=== PATIENT | male | born 1995 | race Caucasian/White ===

== ENCOUNTER 2019-01-27 12:53 | Inpatient (IN) | payer OTHER ==
[2019-01-27 13:03] VITALS: BMI 28.5
--- NOTE | 2019-01-27 13:52 | PDOC ---
History of Present Illness - General Chief Complaint: Pain, Acute Stated Complaint: right testicular pain Time Seen by Provider: 01/27/19 13:06 History Source: Patient - History of Present Illness Initial Comments: 01/27/19 14:22 22-year-old male complaining of right testicular swelling and pain for the last 4 months. Patient was seen at [facility] emergency Department on 01/08/18. Patient brought paperwork which shows a right testicular mass on ultrasound. Patient reports slight pain on urination. Denies penile discharge, abdominal pain. Denies fevers/chills. Patient denies outpatient follow-up. Past History - Past Medical History Allergies/Adverse Reactions: Allergies Allergy/AdvReac Type Severity Reaction Status Date / Time No Known Allergies Allergy Verified 01/27/19 13:45 Home Medications: Ambulatory Orders NK [No Known Home Medication] 01/27/19 - Suicide/Smoking/Psychosocial Hx Smoking History: Never smoked Have you smoked in the past 12 months: No Information on smoking cessation initiated: No Hx Alcohol Use: No Drug/Substance Use Hx: No Review of Systems - Review of Systems Able to Perform ROS?: Yes Is the patient limited Thai proficient: No Constitutional: No: Symptoms Reported, See HPI, Chills, Diaphoresis, Fever, Loss of Appetite, Malaise, Night Sweats, Weakness, Weight Stable, Unintentional Wgt. Loss, Unexplained wgt Loss, Other : Yes: Pain, Testicular Mass (right), Testicular Swelling *Physical Exam - Vital Signs Last Vital Signs Temp Pulse Resp BP Pulse Ox 98.9 F 79 20 144/94 100 01/27/19 13:00 01/27/19 13:00 01/27/19 13:00 01/27/19 13:00 01/27/19 13:00 - Physical Exam General Appearance: Yes: Appropriately Dressed Gastrointestinal/Abdominal: positive: Normal Bowel Sounds, Soft. negative: Tender Male Genitalia: positive: testicular tenderness, testicular mass (right testicle 2x size of left) Extremity: positive: Normal Capillary Refill, Normal Inspection, Normal Range of Motion Integumentary: positive: Normal Color, Dry, Warm Neurologic: positive: Fully Oriented, Alert, Normal Mood/Affect Moderate Sedation - Procedure Monitoring Vital Signs: Procedure Monitoring Vital Signs Temperature 98.9 F 01/27/19 13:00 Pulse Rate 79 01/27/19 13:00 Respiratory Rate 20 03/07/19 13:00 Blood Pressure 144/94 01/27/19 13:00 O2 Sat by Pulse Oximetry (%) 100 01/27/19 13:00 ED Treatment Course - LABORATORY CBC & Chemistry Diagram: 01/30/19 08:40 01/30/19 08:40 - RADIOLOGY Radiology Studies Ordered: Category Date Time Status SCROTUM AND CONTENTS US [US] Stat Ultrasound 01/27/19 13:42 Ordered Progress Note - Progress Note Progress Note: A: testicular mass ; right testicular swelling and pain P: labs Scrotal US: 2 right testicular mass. urology malignancy work up and admission patient to be admitted for further managemenr of care. Medical Decision Making - Medical Decision Making 01/27/19 14:11 patient without insurance and appropriate outpatient follow i spoke to social work [place]. will consult. 01/27/19 15:35 patient case discussed with dr. tomlin (urology). recommends admission for malignancy work up and admission. 01/27/19 16:45 patient signed out to Dr. montanez. *DC/Admit/Observation/Transfer Diagnosis at time of Disposition: Testicular mass, Testicular pain, right - Discharge Dispostion Decision to Admit order: Yes - Referrals - Patient Instructions - Post Discharge Activity
[2019-01-27 14:30] LABS: BASO % 0.4 % (0-2.0); EOS % 0.7 % (0-4.5); HEMATOCRIT 45.7 % (35.4-49); HEMOGLOBIN 16.1 GM/dL (11.7-16.9); LYMPH % 17.8 % (8-40); MCH 30.4 pg (25.7-33.7); MCHC 35.2 g/dl (32.0-35.9); MEAN CELL VOLUME 86.3 fl (80-96); MEAN PLT VOLUME 9.8 fl (7.5-11.1); MONO % 5.1 % (3.8-10.2); PLATELET COUNT 184 K/MM3 (134-434); RBC 5.29 M/mm3 (4.00-5.60); RDW 13.4 % (11.9-15.9); WHITE BLOOD COUNT 9.7 K/mm3 (4.0-10.0)
[2019-01-27 14:42] LABS: URINE APPEARANCE CLEAR; URINE BILIRUBIN NEGATIVE (<2.0 mg/dL); URINE COLOR COLORLESS; URINE GLUCOSE (UA) NEGATIVE (NEGATIVE); URINE KETONE NEGATIVE (NEGATIVE); URINE LEUK ESTERASE NEGATIVE (NEGATIVE); URINE NITRITE NEGATIVE (NEGATIVE); URINE PROTEIN NEGATIVE (NEGATIVE); URINE UROBILINOGEN NEGATIVE mg/dL (0.2-1.0)
[2019-01-27 14:59] LABS: ALBUMIN 4.5 g/dl (3.4-5.0); ALK PHOS 122 U/L (45-117); ANION GAP 7 MMOL/L (8-16); BILIRUBIN,TOTAL 0.6 mg/dL (0.2-1); BLOOD UREA NITROGEN 10 mg/dL (7-18); CALCIUM 9.2 mg/dL (8.5-10.1); CHLORIDE 106 mmol/L (98-107); CO2 26 mmol/L (21-32); GLUCOSE,RANDOM 93 mg/dL (74-106); POTASSIUM 4.4 mmol/L (3.5-5.1); SGOT/AST 33 U/L (15-37); SGPT/ALT 54 U/L (13-61); SODIUM 138 mmol/L (136-145); TOT PROT 7.8 g/dl (6.4-8.2)
--- NOTE | 2019-01-27 16:52 | HP ---
CHIEF COMPLAINT: Right testicular mass PCP: none HISTORY OF PRESENT ILLNESS: 22-year-old male complaining of right testicular swelling and pain for the last 4 months along with 5 found weight loss. Patient was seen at [facility] x2 in december. Right testicular workup was performed in outpatient clinic. Scrotal US here positive for two right testicular masses. UA was normal. ER course was notable for: (1) scrotal u/s (2) (3) Recent Travel: no PAST MEDICAL HISTORY: no PAST SURGICAL HISTORY: no Social History: Smoking: no Alcohol: no Drugs: no Family History: no Allergies No Known Allergies Allergy (Verified 01/27/19 13:45) HOME MEDICATIONS: Home Medications Medication Instructions Recorded NK [No Known Home Medication] 01/27/19 REVIEW OF SYSTEMS CONSTITUTIONAL: Absent: fever, chills, diaphoresis, generalized weakness, malaise, loss of appetite, weight change present-weight change HEENT: Absent: rhinorrhea, nasal congestion, throat pain, throat swelling, difficulty swallowing, mouth swelling, ear pain, eye pain, visual changes CARDIOVASCULAR: Absent: chest pain, syncope, palpitations, irregular heart rate, lightheadedness , peripheral edema RESPIRATORY: Absent: cough, shortness of breath, dyspnea with exertion, orthopnea, wheezing, stridor, hemoptysis GASTROINTESTINAL: Absent: abdominal pain, abdominal distension, nausea, vomiting, diarrhea, constipation, melena, hematochezia GENITOURINARY: Absent: dysuria, frequency, urgency, hesitancy, hematuria, flank pain, present- genital pain MUSCULOSKELETAL: Absent: myalgia, arthralgia, joint swelling, back pain, neck pain SKIN: Absent: rash, itching, pallor HEMATOLOGIC/IMMUNOLOGIC: Absent: easy bleeding, easy bruising, lymphadenopathy, frequent infections ENDOCRINE: Absent: unexplained weight gain, unexplained weight loss, heat intolerance, cold intolerance NEUROLOGIC: Absent: headache, focal weakness or paresthesias, dizziness, unsteady gait, seizure, mental status changes, bladder or bowel incontinence PSYCHIATRIC: Absent: anxiety, depression, suicidal or homicidal ideation, hallucinations. PHYSICAL EXAMINATION Vital Signs - 24 hr 01/27/19 13:00 Temperature 98.9 F Pulse Rate 79 Respiratory 20 Rate Blood Pressure 144/94 O2 Sat by Pulse 100 Oximetry (%) GENERAL: Awake, alert, and fully oriented, in no acute distress. HEAD: Normal with no signs of trauma. EYES: Pupils equal, round and reactive to light, extraocular movements intact, sclera anicteric, conjunctiva clear. No lid lag. EARS, NOSE, THROAT: Ears normal, nares patent, oropharynx clear without exudates. Moist mucous membranes. NECK: Normal range of motion, supple without lymphadenopathy, JVD, or masses. LUNGS: Breath sounds equal, clear to auscultation bilaterally. No wheezes, and no crackles. No accessory muscle use. HEART: Regular rate and rhythm, normal S1 and S2 without murmur, rub or gallop. ABDOMEN: Soft, nontender, not distended, normoactive bowel sounds, no guarding, no rebound, no masses. No hepatomegaly or splenomegaly. MUSCULOSKELETAL: Normal range of motion at all joints. No bony deformities or tenderness. No CVA tenderness. UPPER EXTREMITIES: 2+ pulses, warm, well-perfused. No cyanosis. No clubbing. No peripheral edema. LOWER EXTREMITIES: 2+ pulses, warm, well-perfused. No calf tenderness. No peripheral edema. NEUROLOGICAL: Cranial nerves II-XII intact. Normal speech. Normal gait. PSYCHIATRIC: Cooperative. Good eye contact. Appropriate mood and affect. SKIN: Warm, dry, normal turgor, no rashes or lesions noted, normal capillary refill. GENITAL- -right testicle enlarged, hard mass Laboratory Results - last 24 hr 01/27/19 01/27/19 01/27/19 14:15 14:15 14:27 WBC 9.7 RBC 5.29 Hgb 16.1 Hct 45.7 MCV 86.3 MCH 30.4 MCHC 35.2 RDW 13.4 Plt Count 184 MPV 9.8 Absolute Neuts (auto) 7.4 Neutrophils % 76.0 Lymphocytes % 17.8 Monocytes % 5.1 Eosinophils % 0.7 Basophils % 0.4 Nucleated RBC % 0 Sodium 138 Potassium 4.4 Chloride 106 Carbon Dioxide 26 Anion Gap 7 L BUN 10 Creatinine 1.0 Creat Clearance w eGFR > 60 Random Glucose 93 Calcium 9.2 Total Bilirubin 0.6 AST 33 ALT 54 Alkaline Phosphatase 122 H Total Protein 7.8 Albumin 4.5 Urine Color Colorless Urine Appearance Clear Urine pH 6.0 Ur Specific [place] 1.004 L Urine Protein Negative Urine Glucose (UA) Negative Urine Ketones Negative Urine Blood Negative Urine Nitrite Negative Urine Bilirubin Negative Urine Urobilinogen Negative Ur Leukocyte Esterase Negative Scrotal US: 2 right testicular masses ASSESSMENT/PLAN: #22yo man with 2x right heterogenous testicular masses -likely malignancy. UA is clean. Should r/o chlamydia/GC orchitis. -admit to med/surg -ekg -PT/PTT -type and screen -urology consult -AFP -B- HCG -abd/pelvis CT - to evaluate for mets -chest CT - to evaluate for mets -LDH -morphine IV prn for pain -zofran IV prn if nausea or vomiting -NPO for right testicle surgery -SCDs for dvt ppx Visit type - Emergency Visit Emergency Visit: Yes ED Registration Date: 01/27/19 Care time: The patient presented to the Emergency Department on the above date and was hospitalized for further evaluation of their emergent condition. - New Patient This patient is new to me today: Yes Date on this admission: 01/27/19 - Critical Care Critical Care patient: No
[2019-01-27] MEDS ORDERED: MORPHINE SULFATE 2 MG/ML VIAL IVPUSH PRN (18:47)
[2019-01-27] MEDS ORDERED: ONDANSETRON 4 MG/2 ML VIAL IVPUSH PRN ×2 (18:54→23:29)
--- NOTE | 2019-01-27 19:08 | CON.GU ---
Consult - History of Present Illness History of Present Illness: 22 yo male with several month h/o enlarging rt testicle mass. Seen at [facility] in early Dec with elevated Beta HCG and scrotal sono c/w rt testicle malignancy but never f/u as outpt, now presenting with worsening pain and enlarging mass - Alcohol/Substance Use Hx Alcohol Use: No - Smoking History Smoking history: Never smoked Have you smoked in the past 12 months: No Home Medications - Allergies Allergies/Adverse Reactions: Allergies Allergy/AdvReac Type Severity Reaction Status Date / Time No Known Allergies Allergy Verified 01/27/19 13:45 - Home Medications Home Medications: Ambulatory Orders NK [No Known Home Medication] 01/27/19 Review of Systems - Review of Systems Genitourinary: reports: Testicular Pain Physical Exam- Vital Signs: Vital Signs Temperature 98.3 F 01/27/19 18:25 Pulse Rate 66 01/27/19 18:25 Respiratory Rate 18 01/27/19 18:25 Blood Pressure 122/71 01/27/19 18:25 O2 Sat by Pulse Oximetry (%) 98 01/27/19 18:25 Testicles: Yes: Mass (solid rt testis mass c/w malignancy) Labs: CBC, BMP 01/27/19 14:15 01/27/19 14:15 Imaging - Results Ultrasound: Report Reviewed Assessment/Plan Rt testis mass I'm concerned that since pt has no insurance he will again be lost to follow up. Recommend admission for metastatic w/u, staging and immediate radical right orchiectomy
[2019-01-27] MEDS ORDERED: ceFAZolin SODIUM 1 GM VIAL ONE (19:12)
[2019-01-27] MEDS ORDERED: ONDANSETRON 4 MG/2 ML VIAL ONE (19:12)
[2019-01-27] MEDS ORDERED: DEXAMETHASONE SOD PHOSPHATE 4 MG/1 ML VIAL ONE (19:12)
[2019-01-27] MEDS ORDERED: ceFAZolin SODIUM 1 GM VIAL IVPB ONE (19:12)
[2019-01-27] MEDS ORDERED: PROPOFOL 20 ML ONE (19:15)
[2019-01-27] MEDS ORDERED: GLYCOPYRROLATE 0.2 MG/1 ML VIAL ONE (19:32)
[2019-01-27 19:34] LABS: INR 1.13 (0.83-1.09); PROTHROMBIN TIME (PATIENT) 13.3 SEC (9.7-13.0)
[2019-01-27 19:36] LABS: ACTIVATED PTT 30.5 SECONDS (25.2-36.5)
[2019-01-27] MEDS ORDERED: BUPIVACAINE HCL/PF 0.25% (2.5MG/ML) 10 ML VIAL IJ ONE (19:44)
--- NOTE | 2019-01-27 20:06 | OP ---
Operative Note - Note: Operative Date: 01/27/19 Pre-Operative Diagnosis: rt testis mass Operation: rt rad orchiectomy Post-Operative Diagnosis: Same as Pre-op Surgeon: Jeferson Mccall Anesthesia: General Specimens Removed: rt testis w cord Operative Report Dictated: Yes
[2019-01-27] MEDS ORDERED: HEPARIN NA (PORCINE) 5,000 UNITS/ML 1ML VIAL SQ SCH (22:00)
--- NOTE | 2019-01-27 23:31 | OP ---
DATE OF OPERATION: 01/27/2019 PREOPERATIVE DIAGNOSIS: Right testicular mass. POSTOPERATIVE DIAGNOSIS: Right testicular mass. PROCEDURE: Right radical orchiectomy. SURGEON: Jeferson Wells MD INDICATIONS: The patient is a 23-year-old male with a 4-month history of right testicle mass who presents to [facility] with the same. He was admitted emergently for metastatic workup and right radical orchiectomy. This was discussed in detail with the patient. He understood the risks of bleeding, infection, potential that this may not be a tumor, potential for affecting sexual function and fertility, and potential injury to adjacent structures. Informed consent was obtained. DESCRIPTION OF PROCEDURE: Patient was taken to the OR and placed supine on the table. Cardiac monitors were general anesthesia were established. He was prepped and draped in the standard supine position. The right groin was prepped and draped. An inguinal incision was created with a number 15-blade down through Bartolo fascia until the external oblique aponeurosis was identified. This was then incised. Spermatic cord was delivered and encircled with a Lotus and clamped. The testicle was then delivered into the wound with the spermatic cord clamped to prevent any migration of tumor cells. The testicle was freed from its scrotal tissue by cautery and then the spermatic cord was dissected free to the internal ring. It was clamped and suture ligated with 0 Vicryl. The specimen with the right testicle, tumor, and spermatic cord was then sent to Pathology for analysis. Attention was turned to wound closure. The external oblique aponeurosis was reapproximated with a running 2-0 Vicryl suture. Bartolo layer was reapproximated with interrupted chromic and the skin was closed with 4-0 Monocryl. Dry sterile dressings were placed. Patient was awoken from anesthesia and transferred to the recovery room in stable condition. There were no complications. Estimated blood loss was minimal. JEFERSON WELLS M.D. [id number]
[2019-01-28] MEDS: MORPHINE SULFATE 2 MG/ML VIAL IVPUSH PRN ×4 (00:08→22:43)
[2019-01-28] MEDS: SODIUM CHLORIDE 1,000 ML IV SCH ×2 (00:10→14:07)
--- NOTE | 2019-01-28 08:13 | PN ---
Progress Note (short form) - Note Progress Note: Anesthesia post op note POD#1, S/p right orchiectomy under GA. Pat seen and examined. VSS. No apparent post anesthesia complications. signed off.
[2019-01-28 09:23] LABS: HEMATOCRIT 42.4 % (35.4-49); HEMOGLOBIN 14.6 GM/dL (11.7-16.9); MCH 30.1 pg (25.7-33.7); MCHC 34.5 g/dl (32.0-35.9); MEAN CELL VOLUME 87.3 fl (80-96); MEAN PLT VOLUME 9.7 fl (7.5-11.1); PLATELET COUNT 179 K/MM3 (134-434); RBC 4.86 M/mm3 (4.00-5.60); RDW 13.4 % (11.9-15.9); WHITE BLOOD COUNT 12.6 K/mm3 (4.0-10.0)
[2019-01-28 09:51] LABS: ANION GAP 8 MMOL/L (8-16); BLOOD UREA NITROGEN 12 mg/dL (7-18); CALCIUM 8.5 mg/dL (8.5-10.1); CHLORIDE 105 mmol/L (98-107); CO2 24 mmol/L (21-32); GLUCOSE,RANDOM 93 mg/dL (74-106); POTASSIUM 3.8 mmol/L (3.5-5.1); SODIUM 138 mmol/L (136-145)
--- NOTE | 2019-01-28 11:01 | CONSULT ---
Consult Consult Specialty:: Oncology Referred by:: Dr. Mccall Reason for Consultation:: Testicular mass - History of Present Illness Chief Complaint: Enlarging painful right testicular mass since September 2018. Seen at [facility] with sono demonstating mass and otherwise without intervention . Presented here with increasing testicular pain and underwent right radical orchiectomy . 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 type ) Review of Systems - Review of Systems Constitutional: reports: Unintentional Wgt. Loss (several lb weight loss over past several months) Respiratory: reports: Hemoptysis Genitourinary: reports: Testicular Mass, Testicular Pain, Testicular Swelling Physical Exam Vital Signs: Vital Signs Temperature 98.3 F 01/28/19 08:38 Pulse Rate 83 01/28/19 08:38 Respiratory Rate 18 01/28/19 08:38 Blood Pressure 120/57 L 01/28/19 08:38 O2 Sat by Pulse Oximetry (%) 98 01/28/19 02:00 Constitutional: Yes: Moderate Distress Eyes: No: Ptosis, Sclera Icterus HENT: No: Epistaxis, Thrush Neck: Yes: Supple, Trachea Midline. No: Decreased ROM, Lymphadenopathy, Tenderness, Thyromegaly Cardiovascular: Yes: Regular Rate and Rhythm Respiratory: Yes: Diminished Gastrointestinal: Yes: Normal Bowel Sounds, Soft. No: Hepatomegaly, Splenomegaly Renal/: Yes: Other (uncircumcised ,scrotal support . s/p right radical orchiectomy). No: Anuria, CVA Tenderness - Left Breast(s): No: Gynecomastia Musculoskeletal: No: Back Pain Extremities: No: Calf Tenderness Edema: No Wound/Incision: Yes: Clean/Dry Neurological: Yes: WNL ...Motor Strength: WNL Psychiatric: Yes: WNL Labs: CBC, BMP 01/28/19 09:05 01/28/19 09:05 Imaging - Results Cat Scan: Report Reviewed, Image Reviewed Problem List - Problems (1) Testicular mass Assessment/Plan: Enlarging , painful right testicular mass since September 2018. Underwent right radical orchiectomy. Path pending AFP pending -- Beta HCG elevated --27,234 LDH -minimal elevation CT pleural and lung nodules; no retroperitoneal lymphadenopathy Plan: Await path Somewhat unusual to have lung mets without retroperitoneal khushi disease for germ cell tumors ( ? choriocarcinoma) Will obtain GGTP Code(s): N50.9 - DISORDER OF MALE GENITAL ORGANS, UNSPECIFIED
--- NOTE | 2019-01-28 17:03 | PN ---
Physical Exam: SUBJECTIVE: Patient seen and examined OBJECTIVE: start lovenox prophylaxis POD#1, S/p right orchiectomy under GA Vital Signs Period Temp Pulse Resp BP Sys/Stanton Pulse Ox Last 24 Hr 98.2 F-99.5 F 66-87 15-19 120-160/57-81 98-100 GENERAL: The patient is awake, alert, and fully oriented, in no acute distress. greenlandic speaking only. HEAD: Normal with no signs of trauma. EYES: PERRL, extraocular movements intact, sclera anicteric, conjunctiva clear. No ptosis. ENT: Ears normal, nares patent, oropharynx clear without exudates, moist mucous membranes. NECK: Trachea midline, full range of motion, supple. LUNGS: Breath sounds equal, clear to auscultation bilaterally, no wheezes HEART: Regular rate and rhythm, S1, S2 without murmur, rub or gallop. ABDOMEN: Soft, nontender, nondistended, normoactive bowel sounds, no guarding, no rebound, no hepatosplenomegaly, no masses. EXTREMITIES: no edema. NEUROLOGICAL: Normal speech, gait not observed. PSYCH: Normal mood, normal affect. Laboratory Results - last 24 hr 01/27/19 01/27/19 01/27/19 09:05 18:22 18:22 WBC RBC Hgb Hct MCV MCH MCHC RDW Plt Count MPV PT with INR 13.30 H INR 1.13 H PTT (Actin FS) 30.5 Sodium Potassium Chloride Carbon Dioxide Anion Gap BUN Creatinine Creat Clearance w eGFR POC Glucometer Random Glucose Calcium LD Total 294 H Beta HCG, Quant 87029.1 Blood Type O POSITIVE Antibody Screen 01/27/19 01/28/19 01/28/19 18:22 00:15 06:36 WBC RBC Hgb Hct MCV MCH MCHC RDW Plt Count MPV PT with INR INR PTT (Actin FS) Sodium Potassium Chloride Carbon Dioxide Anion Gap BUN Creatinine Creat Clearance w eGFR POC Glucometer 134 104 Random Glucose Calcium LD Total Beta HCG, Quant Blood Type O POSITIVE Antibody Screen Negative 01/28/19 01/28/19 09:05 09:05 WBC 12.6 H RBC 4.86 Hgb 14.6 Hct 42.4 MCV 87.3 MCH 30.1 MCHC 34.5 RDW 13.4 Plt Count 179 MPV 9.7 PT with INR INR PTT (Actin FS) Sodium 138 Potassium 3.8 Chloride 105 Carbon Dioxide 24 Anion Gap 8 BUN 12 Creatinine 1.0 Creat Clearance w eGFR > 60 POC Glucometer Random Glucose 93 Calcium 8.5 LD Total Beta HCG, Quant Blood Type Antibody Screen Active Medications Generic Name Dose Route Start Last Admin Trade Name Freq PRN Reason Stop Dose Admin Enoxaparin Sodium 40 mg 01/28/19 21:00 Lovenox - SQ DAILY MARIJA Sodium Chloride 1,000 mls @ 75 mls/hr 01/27/19 23:30 01/28/19 14:07 Normal Saline - IV 75 mls/hr ASDIR MARIJA Administration Morphine Sulfate 2 mg 01/27/19 23:29 01/28/19 11:36 Morphine Sulfate IVPUSH 2 mg Q4H PRN Administration PAIN LEVEL 6-10 Ondansetron HCl 4 mg 01/27/19 23:29 Zofran Injection IVPUSH Q4H PRN NAUSEA AND/OR VOMITING ASSESSMENT/PLAN: Patient is a 22 year old male with no significant past medical history other than a right testicular mass, admitted for worsening pain and of this right testicle. for the last 4 months along with 5 found weight loss. Scrotal US here positive for two right testicular masses. UA was normal. Imaging: Scrotal U/S: positive for two right testicular masses. Chest CT: pulmonary nodules : POD#1, S/p right orchiectomy under GA Pain management Chest ct consistent with possible mets Urology and hematology following patient aware of results Incentive spriometer bowel regimen monitor labs, vitals tumor markers pending fen tolerating PO monitor electrolytes reg diet prophy lovenox 40mg daily physical therapy Visit type - Emergency Visit Emergency Visit: Yes ED Registration Date: 01/27/19 Care time: The patient presented to the Emergency Department on the above date and was hospitalized for further evaluation of their emergent condition. - New Patient This patient is new to me today: No - Critical Care Critical Care patient: No - Discharge Referral Referred to [facility] Med P.C.: No
[2019-01-28] MEDS: ENOXAPARIN NA (PORCINE) 40 MG/0.4 ML DISP.SYRIN SQ SCH (22:43)
[2019-01-29] MEDS: SODIUM CHLORIDE 1,000 ML IV SCH (04:30)
[2019-01-29] MEDS: ENOXAPARIN NA (PORCINE) 40 MG/0.4 ML DISP.SYRIN SQ SCH ×2 (09:35→10:50)
--- NOTE | 2019-01-29 10:19 | PN ---
Progress Note (short form) - Note Progress Note: afebrile wound clean and dry elevated AFP, BHCG and LDH Mets on CT chest but not retroperitoneum await path
[2019-01-29 12:18] LABS: BASO % 0.4 % (0-2.0); EOS % 1.4 % (0-4.5); HEMATOCRIT 43.8 % (35.4-49); HEMOGLOBIN 15.4 GM/dL (11.7-16.9); MCH 30.9 pg (25.7-33.7); MEAN CELL VOLUME 88.2 fl (80-96); MEAN PLT VOLUME 9.9 fl (7.5-11.1); MONO % 8.7 % (3.8-10.2); NEUT % 65.5 % (42.8-82.8); PLATELET COUNT 165 K/MM3 (134-434); RBC 4.97 M/mm3 (4.00-5.60); RDW 13.5 % (11.9-15.9); WHITE BLOOD COUNT 8.8 K/mm3 (4.0-10.0)
[2019-01-29] MEDS: MORPHINE SULFATE 2 MG/ML VIAL IVPUSH PRN (12:40)
[2019-01-29 12:58] LABS: ALBUMIN 4.2 g/dl (3.4-5.0); ALK PHOS 112 U/L (45-117); ANION GAP 7 MMOL/L (8-16); BILIRUBIN,TOTAL 0.6 mg/dL (0.2-1); BLOOD UREA NITROGEN 11 mg/dL (7-18); CALCIUM 8.7 mg/dL (8.5-10.1); CHLORIDE 105 mmol/L (98-107); CO2 26 mmol/L (21-32); GLUCOSE,RANDOM 80 mg/dL (74-106); POTASSIUM 4.1 mmol/L (3.5-5.1); SGOT/AST 17 U/L (15-37); SGPT/ALT 35 U/L (13-61); SODIUM 138 mmol/L (136-145); TOT PROT 7.6 g/dl (6.4-8.2)
[2019-01-29] MEDS ORDERED: MORPHINE SULFATE 2 MG/ML VIAL IVPUSH PRN (13:32)
--- NOTE | 2019-01-29 13:34 | PN ---
Physical Exam: SUBJECTIVE: Patient seen and examined OBJECTIVE: Vital Signs Period Temp Pulse Resp BP Sys/Stanton Pulse Ox Last 24 Hr 97.9 F-98.8 F 72-86 18-20 116-146/56-86 98 GENERAL: The patient is awake, alert, and fully oriented, in no acute distress. cayman islander speaking only. HEAD: Normal with no signs of trauma. EYES: PERRL, extraocular movements intact, sclera anicteric, conjunctiva clear. No ptosis. ENT: Ears normal, nares patent, oropharynx clear without exudates, moist mucous membranes. NECK: Trachea midline, full range of motion, supple. LUNGS: Breath sounds equal, clear to auscultation bilaterally, no wheezes HEART: Regular rate and rhythm, S1, S2 without murmur, rub or gallop. ABDOMEN: Soft, nontender, nondistended, normoactive bowel sounds, no guarding, no rebound, no hepatosplenomegaly, no masses. EXTREMITIES: no edema. NEUROLOGICAL: Normal speech, gait not observed. PSYCH: Normal mood, normal affect. Laboratory Results - last 24 hr 01/27/19 01/29/19 01/29/19 17:15 06:42 11:00 WBC RBC Hgb Hct MCV MCH MCHC RDW Plt Count MPV Absolute Neuts (auto) Neutrophils % Lymphocytes % Monocytes % Eosinophils % Basophils % Nucleated RBC % Sodium 138 Potassium 4.1 Chloride 105 Carbon Dioxide 26 Anion Gap 7 L BUN 11 Creatinine 1.0 Creat Clearance w eGFR > 60 POC Glucometer 95 Random Glucose 80 Calcium 8.7 Total Bilirubin 0.6 AST 17 ALT 35 Alkaline Phosphatase 112 Total Protein 7.6 Albumin 4.2 Tumor Marker AFP 42.7 H 01/29/19 11:30 WBC 8.8 RBC 4.97 Hgb 15.4 Hct 43.8 MCV 88.2 MCH 30.9 MCHC 35.0 RDW 13.5 Plt Count 165 MPV 9.9 Absolute Neuts (auto) 5.7 Neutrophils % 65.5 Lymphocytes % 24.0 D Monocytes % 8.7 Eosinophils % 1.4 D Basophils % 0.4 Nucleated RBC % 0 Sodium Potassium Chloride Carbon Dioxide Anion Gap BUN Creatinine Creat Clearance w eGFR POC Glucometer Random Glucose Calcium Total Bilirubin AST ALT Alkaline Phosphatase Total Protein Albumin Tumor Marker AFP Active Medications Generic Name Dose Route Start Last Admin Trade Name Freq PRN Reason Stop Dose Admin Enoxaparin Sodium 40 mg 01/28/19 21:00 01/29/19 10:50 Lovenox - SQ Not Given DAILY MARIJA Sodium Chloride 1,000 mls @ 75 mls/hr 01/27/19 23:30 01/29/19 04:30 Normal Saline - IV 75 mls/hr ASDIR MARIJA Administration Morphine Sulfate 1 mg 01/29/19 13:32 Morphine Sulfate IVPUSH Q4H PRN PAIN LEVEL 6-10 Ondansetron HCl 4 mg 01/27/19 23:29 Zofran Injection IVPUSH Q4H PRN NAUSEA AND/OR VOMITING ASSESSMENT/PLAN: Patient is a 22 year old male with no significant past medical history other than a right testicular mass, admitted for worsening pain and of this right testicle. for the last 4 months along with 5 found weight loss. Scrotal US here positive for two right testicular masses. UA was normal. Imaging: Scrotal U/S: positive for two right testicular masses. Chest CT: pulmonary nodules : POD#2, S/p right orchiectomy Pain management with morphine Chest ct consistent with possible mets to lung Urology and hematology following patient aware of results Incentive spriometer bowel regimen monitor labs, vitals tumor markers pending fen tolerating PO monitor electrolytes reg diet prophy lovenox 40mg daily physical therapy pain management monitor daily labs full code Visit type - Emergency Visit Emergency Visit: Yes ED Registration Date: 01/27/19 Care time: The patient presented to the Emergency Department on the above date and was hospitalized for further evaluation of their emergent condition. - New Patient This patient is new to me today: No - Critical Care Critical Care patient: No - Discharge Referral Referred to [facility] Med P.C.: No
[2019-01-29 13:37] LABS: GAMMA GLUTAMYL TRANSPEPTIDASE 62 U/L (5-85)
--- NOTE | 2019-01-29 20:13 | PN ---
Progress Note, Physician Chief Complaint: testicular mass History of Present Illness: Has some pain at surgical site. Denies chest pain, SOB. - Current Medication List Current Medications: Active Medications Enoxaparin Sodium (Lovenox -) 40 mg SQ DAILY [facility] Last Admin: 01/29/19 10:50 Dose: Not Given Sodium Chloride (Normal Saline -) 1,000 mls @ 75 mls/hr IV ASDIR [facility] Last Admin: 01/29/19 04:30 Dose: 75 mls/hr Morphine Sulfate (Morphine Sulfate) 1 mg IVPUSH Q4H PRN PRN Reason: PAIN LEVEL 6-10 Ondansetron HCl (Zofran Injection) 4 mg IVPUSH Q4H PRN PRN Reason: NAUSEA AND/OR VOMITING - Objective Vital Signs: Vital Signs Temperature 98.6 F 01/29/19 18:26 Pulse Rate 75 01/29/19 18:26 Respiratory Rate 18 01/29/19 18:26 Blood Pressure 140/59 L 01/29/19 18:26 O2 Sat by Pulse Oximetry (%) 98 01/28/19 21:00 Constitutional: Yes: Well Nourished, Calm Eyes: Yes: Conjunctiva Clear Cardiovascular: Yes: Regular Rate and Rhythm Respiratory: Yes: Regular, CTA Bilaterally Gastrointestinal: Yes: WNL, Normal Bowel Sounds, Soft Extremities: Yes: WNL Edema: No Labs: CBC, BMP 01/29/19 11:30 01/29/19 11:00 INR, PTT INR 1.13 (0.83-1.09) H 01/27/19 18:22 Assessment/Plan 22M with several months of enlarging right testicular mass s/p orchiectomy on 01/27/19. Found to have multiple bilateral pulmonary nodules c/w metastasis. No RP lymphadenopathy. HCG 27,234, AFP 42.7, LDH 294. 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 Awaiting path. Will need chemotherapy.
[2019-01-30 08:55] LABS: BASO % 0.4 % (0-2.0); EOS % 1.9 % (0-4.5); HEMATOCRIT 45.7 % (35.4-49); HEMOGLOBIN 15.6 GM/dL (11.7-16.9); LYMPH % 19.3 % (8-40); MCH 30.3 pg (25.7-33.7); MCHC 34.2 g/dl (32.0-35.9); MEAN CELL VOLUME 88.6 fl (80-96); MEAN PLT VOLUME 9.7 fl (7.5-11.1); MONO % 7.9 % (3.8-10.2); NEUT % 70.5 % (42.8-82.8); PLATELET COUNT 172 K/MM3 (134-434); RBC 5.16 M/mm3 (4.00-5.60); RDW 13.4 % (11.9-15.9); WHITE BLOOD COUNT 8.4 K/mm3 (4.0-10.0)
[2019-01-30 09:18] LABS: ALK PHOS 106 U/L (45-117); ANION GAP 7 MMOL/L (8-16); BILIRUBIN,TOTAL 0.7 mg/dL (0.2-1); BLOOD UREA NITROGEN 12 mg/dL (7-18); CALCIUM 8.8 mg/dL (8.5-10.1); CHLORIDE 110 mmol/L (98-107); CO2 26 mmol/L (21-32); CREATININE 1.1 mg/dL (0.55-1.3); GLUCOSE,RANDOM 89 mg/dL (74-106); POTASSIUM 3.8 mmol/L (3.5-5.1); SGOT/AST 14 U/L (15-37); SGPT/ALT 38 U/L (13-61); SODIUM 143 mmol/L (136-145); TOT PROT 7.4 g/dl (6.4-8.2)
[2019-01-30] MEDS: ENOXAPARIN NA (PORCINE) 40 MG/0.4 ML DISP.SYRIN SQ SCH (09:35)
--- NOTE | 2019-01-30 12:22 | PN ---
Physical Exam: SUBJECTIVE: Patient seen and examined OBJECTIVE: Vital Signs Period Temp Pulse Resp BP Sys/Stanton Pulse Ox Last 24 Hr 97.9 F-98.8 F 67-83 18-20 115-142/59-77 98 GENERAL: The patient is awake, alert, and fully oriented, in no acute distress. sao tomean speaking only. HEAD: Normal with no signs of trauma. EYES: PERRL, extraocular movements intact, sclera anicteric, conjunctiva clear. No ptosis. ENT: Ears normal, nares patent, oropharynx clear without exudates, moist mucous membranes. NECK: Trachea midline, full range of motion, supple. LUNGS: Breath sounds equal, clear to auscultation bilaterally, no wheezes HEART: Regular rate and rhythm, S1, S2 without murmur, rub or gallop. ABDOMEN: Soft, nontender, nondistended, normoactive bowel sounds, no guarding, no rebound, no hepatosplenomegaly, no masses. EXTREMITIES: no edema. NEUROLOGICAL: Normal speech, gait not observed. PSYCH: Normal mood, normal affect. Laboratory Results - last 24 hr 01/29/19 01/29/19 01/29/19 11:00 11:30 22:01 WBC 8.8 RBC 4.97 Hgb 15.4 Hct 43.8 MCV 88.2 MCH 30.9 MCHC 35.0 RDW 13.5 Plt Count 165 MPV 9.9 Absolute Neuts (auto) 5.7 Neutrophils % 65.5 Lymphocytes % 24.0 D Monocytes % 8.7 Eosinophils % 1.4 D Basophils % 0.4 Nucleated RBC % 0 Sodium 138 Potassium 4.1 Chloride 105 Carbon Dioxide 26 Anion Gap 7 L BUN 11 Creatinine 1.0 Creat Clearance w eGFR > 60 POC Glucometer 102 Random Glucose 80 Calcium 8.7 Total Bilirubin 0.6 GGT 62 AST 17 ALT 35 Alkaline Phosphatase 112 Total Protein 7.6 Albumin 4.2 01/30/19 01/30/19 01/30/19 05:54 08:40 08:40 WBC 8.4 RBC 5.16 Hgb 15.6 Hct 45.7 MCV 88.6 MCH 30.3 MCHC 34.2 RDW 13.4 Plt Count 172 MPV 9.7 Absolute Neuts (auto) 5.9 Neutrophils % 70.5 Lymphocytes % 19.3 Monocytes % 7.9 Eosinophils % 1.9 Basophils % 0.4 Nucleated RBC % 0 Sodium 143 Potassium 3.8 Chloride 110 H Carbon Dioxide 26 Anion Gap 7 L BUN 12 Creatinine 1.1 Creat Clearance w eGFR > 60 POC Glucometer 99 Random Glucose 89 Calcium 8.8 Total Bilirubin 0.7 GGT AST 14 L ALT 38 Alkaline Phosphatase 106 Total Protein 7.4 Albumin 4.0 Active Medications Generic Name Dose Route Start Last Admin Trade Name Freq PRN Reason Stop Dose Admin Enoxaparin Sodium 40 mg 01/28/19 21:00 01/30/19 09:35 Lovenox - SQ 40 mg DAILY [facility] Administration Oxycodone HCl 5 mg 01/30/19 12:20 Roxicodone - PO Q6H PRN PAIN LEVEL 4 - 6 Oxycodone HCl 10 mg 01/30/19 12:20 Roxicodone - PO Q6H PRN PAIN LEVEL 7 - 10 ASSESSMENT/PLAN: Patient is a 23 year old male with no past medical history. He presents to the ED with c/yoli right testicular pain. He has several months of enlarging right testicular mass s/p orchiectomy on 01/27/19. Further, he was found to have multiple bilateral pulmonary nodules concerning for metastasis. labs: HCG 27,234 tumor marker AFP 42.7 LDH 294 Imaging: Scrotal U/S: positive for two right testicular masses. Chest CT: pulmonary nodules : POD#3, S/p right orchiectomy Pain management with oxycodone 5, 10 based on pain scale Chest ct consistent with possible mets to lung Urology and hematology following patient aware of results, he informed his family He is in agreement with chemotherapy Incentive spriometer bowel regimen monitor labs, vitals tumor markers pending fen tolerating PO monitor electrolytes reg diet prophy lovenox 40mg daily physical therapy pain management monitor daily labs full code Visit type - Emergency Visit Emergency Visit: Yes ED Registration Date: 01/27/19 Care time: The patient presented to the Emergency Department on the above date and was hospitalized for further evaluation of their emergent condition. - New Patient This patient is new to me today: No - Critical Care Critical Care patient: No - Discharge Referral Referred to [facility] Med P.C.: No
[2019-01-30] MEDS: oxyCODONE HCL 5 MG TABLET PO PRN ×2 (16:17→22:31)
[2019-01-30] MEDS ORDERED: ONDANSETRON *ODT* 4 MG TABLET SL PRN (17:25)
[2019-01-30] MEDS ORDERED: SENNOSIDES 8.6MG TABLET (FP) PO PRN (17:31)
--- NOTE | 2019-01-30 18:29 | PN ---
Progress Note, Physician Chief Complaint: testicular mass History of Present Illness: Denies abdominal pain . Denies chest pain, SOB. Saw a small amount of brown blood after coughing. - Current Medication List Current Medications: Active Medications Acetaminophen (Tylenol -) 650 mg PO Q6H PRN PRN Reason: PAIN LEVEL 1-5 Docusate Sodium (Colace -) 100 mg PO TID [facility] Enoxaparin Sodium (Lovenox -) 40 mg SQ DAILY [facility] Last Admin: 01/30/19 09:35 Dose: 40 mg Ondansetron HCl (Zofran Odt -) 4 mg SL Q8H PRN PRN Reason: NAUSEA Oxycodone HCl (Roxicodone -) 5 mg PO Q6H PRN PRN Reason: PAIN LEVEL 4 - 6 Oxycodone HCl (Roxicodone -) 10 mg PO Q6H PRN PRN Reason: PAIN LEVEL 7 - 10 Last Admin: 01/30/19 16:17 Dose: 10 mg Pantoprazole Sodium (Protonix -) 40 mg PO DAILY [facility] Polyethylene Glycol (Miralax (For Daily Use) -) 17 gm PO BID [facility] Senna (Senna -) 2 tab PO HS PRN PRN Reason: CONSTIPATION - Objective Vital Signs: Vital Signs Temperature 98 F 01/30/19 13:39 Pulse Rate 67 01/30/19 13:39 Respiratory Rate 20 01/30/19 13:39 Blood Pressure 125/72 01/30/19 13:39 O2 Sat by Pulse Oximetry (%) 98 01/29/19 20:13 Constitutional: Yes: No Distress, Calm Eyes: Yes: Conjunctiva Clear Cardiovascular: Yes: WNL, Regular Rate and Rhythm Respiratory: Yes: Regular, CTA Bilaterally Gastrointestinal: Yes: WNL, Soft Edema: No Labs: CBC, BMP 01/30/19 08:40 01/30/19 08:40 INR, PTT INR 1.13 (0.83-1.09) H 01/27/19 18:22 Assessment/Plan 22M with several months of enlarging right testicular mass s/p orchiectomy on 01/27/19. Found to have multiple bilateral pulmonary nodules c/w metastasis. No RP lymphadenopathy. HCG 27,234, AFP 42.7, LDH 294. 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 Awaiting path. Will need chemotherapy.
[2019-01-30] MEDS: DOCUSATE SODIUM 100 MG CAPSULE (FP) PO SCH (22:31)
[2019-01-30] MEDS: POLYETHYLENE GLYCOL 3350 119 GM BTL PO SCH (22:36)
[2019-01-31] MEDS: DOCUSATE SODIUM 100 MG CAPSULE (FP) PO SCH ×3 (05:14→21:37)
[2019-01-31] MEDS: POLYETHYLENE GLYCOL 3350 119 GM BTL PO SCH ×2 (09:29→21:37)
[2019-01-31] MEDS: PANTOPRAZOLE 40 MG TABLET (FP) PO SCH (09:30)
[2019-01-31] MEDS: ENOXAPARIN NA (PORCINE) 40 MG/0.4 ML DISP.SYRIN SQ SCH (09:30)
[2019-01-31 10:26] LABS: BASO % 0.5 % (0-2.0); HEMATOCRIT 45.2 % (35.4-49); HEMOGLOBIN 15.6 GM/dL (11.7-16.9); LYMPH % 20.2 % (8-40); MCH 30.5 pg (25.7-33.7); MCHC 34.6 g/dl (32.0-35.9); MEAN CELL VOLUME 88.1 fl (80-96); MONO % 6.5 % (3.8-10.2); NEUT % 70.8 % (42.8-82.8); PLATELET COUNT 174 K/MM3 (134-434); RBC 5.13 M/mm3 (4.00-5.60); RDW 13.1 % (11.9-15.9); WHITE BLOOD COUNT 8.2 K/mm3 (4.0-10.0)
[2019-01-31 11:00] LABS: ALBUMIN 3.9 g/dl (3.4-5.0); ALK PHOS 106 U/L (45-117); ANION GAP 7 MMOL/L (8-16); BILIRUBIN,TOTAL 0.7 mg/dL (0.2-1); BLOOD UREA NITROGEN 14 mg/dL (7-18); CHLORIDE 104 mmol/L (98-107); CO2 26 mmol/L (21-32); CREATININE 1.1 mg/dL (0.55-1.3); GLUCOSE,RANDOM 87 mg/dL (74-106); POTASSIUM 3.9 mmol/L (3.5-5.1); SGOT/AST 16 U/L (15-37); SGPT/ALT 40 U/L (13-61); SODIUM 137 mmol/L (136-145); TOT PROT 7.4 g/dl (6.4-8.2)
[2019-01-31 11:46] LABS: PLATELET ESTIMATE NORMAL
--- NOTE | 2019-01-31 14:41 | PN ---
Physical Exam: SUBJECTIVE: Patient seen and examined at the bedside. tells me he had one episode of hemoptysis today. also had some right inner ankle discomfort that has resolved. OBJECTIVE: will continue on lovenox with close monitoring if hemoptysis continues, will d/c lovenox left ankle discomfort, no swelling or concerning signs of dvt. will monitor. Vital Signs Period Temp Pulse Resp BP Sys/Stanton Pulse Ox Last 24 Hr 97.6 F-98.1 F 64-76 16-20 120-129/64-77 99 GENERAL: The patient is awake, alert, and fully oriented, in no acute distress. trinidadian speaking only. HEAD: Normal with no signs of trauma. EYES: PERRL, extraocular movements intact, sclera anicteric, conjunctiva clear. No ptosis. ENT: Ears normal, nares patent, oropharynx clear without exudates, moist mucous membranes. NECK: Trachea midline, full range of motion, supple. LUNGS: Breath sounds equal, clear to auscultation bilaterally, no wheezes HEART: Regular rate and rhythm, S1, S2 without murmur, rub or gallop. ABDOMEN: Soft, nontender, nondistended, normoactive bowel sounds, no guarding, no rebound, no hepatosplenomegaly, no masses. EXTREMITIES: no edema on either ankle. no signs of dvt. no calf tenderness. NEUROLOGICAL: Normal speech, gait not observed. PSYCH: Normal mood, normal affect. Laboratory Results - last 24 hr 01/30/19 01/31/19 01/31/19 22:35 05:18 09:40 WBC 8.2 RBC 5.13 Hgb 15.6 Hct 45.2 MCV 88.1 MCH 30.5 MCHC 34.6 RDW 13.1 Plt Count 174 MPV 10.0 Absolute Neuts (auto) 5.8 Neutrophils % 70.8 Lymphocytes % 20.2 Monocytes % 6.5 Eosinophils % 2.0 Basophils % 0.5 Nucleated RBC % 0 Platelet Estimate Normal Sodium Potassium Chloride Carbon Dioxide Anion Gap BUN Creatinine Creat Clearance w eGFR POC Glucometer 96 91 Random Glucose Calcium Total Bilirubin AST ALT Alkaline Phosphatase Total Protein Albumin 01/31/19 01/31/19 09:40 11:36 WBC RBC Hgb Hct MCV MCH MCHC RDW Plt Count MPV Absolute Neuts (auto) Neutrophils % Lymphocytes % Monocytes % Eosinophils % Basophils % Nucleated RBC % Platelet Estimate Sodium 137 Potassium 3.9 Chloride 104 Carbon Dioxide 26 Anion Gap 7 L BUN 14 Creatinine 1.1 Creat Clearance w eGFR > 60 POC Glucometer 79 Random Glucose 87 Calcium 9.0 Total Bilirubin 0.7 AST 16 ALT 40 Alkaline Phosphatase 106 Total Protein 7.4 Albumin 3.9 Active Medications Generic Name Dose Route Start Last Admin Trade Name Freq PRN Reason Stop Dose Admin Acetaminophen 650 mg 01/30/19 17:24 Tylenol - PO Q6H PRN PAIN LEVEL 1-5 Docusate Sodium 100 mg 01/30/19 22:00 01/31/19 05:14 Colace - PO 100 mg TID [facility] Administration Enoxaparin Sodium 40 mg 01/28/19 21:00 01/31/19 09:30 Lovenox - SQ 40 mg DAILY [facility] Administration Ondansetron HCl 4 mg 01/30/19 17:25 Zofran Odt - SL Q8H PRN NAUSEA Oxycodone HCl 5 mg 01/30/19 12:20 Roxicodone - PO Q6H PRN PAIN LEVEL 4 - 6 Oxycodone HCl 10 mg 01/30/19 12:20 01/30/19 22:31 Roxicodone - PO 10 mg Q6H PRN Administration PAIN LEVEL 7 - 10 Pantoprazole Sodium 40 mg 01/31/19 10:00 01/31/19 09:30 Protonix - PO 40 mg DAILY [facility] Administration Polyethylene Glycol 17 gm 01/30/19 22:00 01/31/19 09:29 Miralax (For Daily Use) - PO 17 gm BID [facility] Administration Senna 2 tab 01/30/19 17:31 Senna - PO HS PRN CONSTIPATION ASSESSMENT/PLAN: Patient is a 23 year old male with no past medical history. He presents to the ED 01/27/19 with c/o of right testicular pain. He has several months of enlarging right testicular mass and is now s/p orchiectomy on 01/27/19. Further, he was found to have multiple bilateral pulmonary nodules concerning for metastasis. labs: HCG 27,234 tumor marker AFP 42.7 LDH 294 Imaging: Scrotal U/S: positive for two right testicular masses. Chest CT: pulmonary nodules : POD#4, S/p right orchiectomy Pain management with oxycodone 5, 10 based on pain scale Chest ct consistent with possible mets to lung Urology and hematology following. Patient in agreement to have chemotherapy. Incentive spriometer bowel regimen monitor labs, vitals fen tolerating PO monitor electrolytes reg diet prophy lovenox 40mg daily physical therapy pain management monitor daily labs full code Visit type - Emergency Visit Emergency Visit: Yes ED Registration Date: 01/27/19 Care time: The patient presented to the Emergency Department on the above date and was hospitalized for further evaluation of their emergent condition. - New Patient This patient is new to me today: No - Critical Care Critical Care patient: No - Discharge Referral Referred to [facility] Med P.C.: No
--- NOTE | 2019-01-31 16:28 | PN ---
Progress Note (short form) - Note Progress Note: Patient seen and examined Complains of some hemoptysis Pain at surgical site Last Vital Signs Temp Pulse Resp BP Pulse Ox 98.1 F 76 20 129/73 99 01/31/19 13:44 01/31/19 13:44 01/31/19 13:44 01/31/19 13:44 01/31/19 09:00 HEENT: GINA, EOM Intact Oropharynx: No thrush, No mucositis Cor: RSR, No murmurs, No gallops Lungs: Clear to P&A Abd: Soft, Normal bowel sounds, No organomegaly healed surgical scar Ext:No significant edema Skin: No rashes, Integument intact CBC, BMP 01/31/19 09:40 01/31/19 09:40 Abnormal Lab Results 01/31/19 09:40 Anion Gap 7 L AFP elevated and Hcg elevated - non seminomatous germ ceell tumor LDH mildly elevated 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 Problem List - Problems (1) Testicular mass Code(s): N50.9 - DISORDER OF MALE GENITAL ORGANS, UNSPECIFIED
[2019-01-31] MEDS: oxyCODONE HCL 5 MG TABLET PO PRN ×2 (16:57→21:36)
[2019-01-31] MEDS: ACETAMINOPHEN 325 MG TABLET (FP) PO PRN (17:00)
[2019-02-01] MEDS: oxyCODONE HCL 5 MG TABLET PO PRN ×4 (03:44→20:55)
[2019-02-01] MEDS: ACETAMINOPHEN 325 MG TABLET (FP) PO PRN ×2 (03:44→20:56)
[2019-02-01] MEDS: DOCUSATE SODIUM 100 MG CAPSULE (FP) PO SCH ×3 (05:04→22:10)
[2019-02-01] MEDS: ENOXAPARIN NA (PORCINE) 40 MG/0.4 ML DISP.SYRIN SQ SCH ×2 (09:17→09:24)
[2019-02-01] MEDS: PANTOPRAZOLE 40 MG TABLET (FP) PO SCH (09:17)
[2019-02-01] MEDS: POLYETHYLENE GLYCOL 3350 119 GM BTL PO SCH ×2 (10:21→22:10)
[2019-02-01 10:26] LABS: BASO % 0.6 % (0-2.0); EOS % 2.4 % (0-4.5); HEMATOCRIT 44.9 % (35.4-49); HEMOGLOBIN 15.8 GM/dL (11.7-16.9); LYMPH % 19.7 % (8-40); MCH 30.7 pg (25.7-33.7); MCHC 35.1 g/dl (32.0-35.9); MEAN CELL VOLUME 87.4 fl (80-96); MEAN PLT VOLUME 9.7 fl (7.5-11.1); MONO % 6.8 % (3.8-10.2); NEUT % 70.5 % (42.8-82.8); PLATELET COUNT 169 K/MM3 (134-434); RBC 5.13 M/mm3 (4.00-5.60); RDW 13.3 % (11.9-15.9); WHITE BLOOD COUNT 7.5 K/mm3 (4.0-10.0)
[2019-02-01 11:03] LABS: ALK PHOS 111 U/L (45-117); ANION GAP 6 MMOL/L (8-16); BILIRUBIN,TOTAL 0.5 mg/dL (0.2-1); BLOOD UREA NITROGEN 14 mg/dL (7-18); CALCIUM 8.7 mg/dL (8.5-10.1); CHLORIDE 103 mmol/L (98-107); CO2 28 mmol/L (21-32); CREATININE 1.1 mg/dL (0.55-1.3); GLUCOSE,RANDOM 80 mg/dL (74-106); POTASSIUM 4.2 mmol/L (3.5-5.1); SGOT/AST 17 U/L (15-37); SGPT/ALT 45 U/L (13-61); SODIUM 137 mmol/L (136-145); TOT PROT 7.4 g/dl (6.4-8.2)
--- NOTE | 2019-02-01 15:39 | PN ---
Progress Note (short form) - Note Progress Note: Patient seen and examined Pain is improving Some hemoptysis Ambulating in kat Path still awaited Last Vital Signs Temp Pulse Resp BP Pulse Ox 97.9 F 61 20 111/61 99 02/01/19 13:40 02/01/19 13:40 02/01/19 13:40 02/01/19 13:40 02/01/19 11:00 HEENT: GINA, EOM Intact Cor: RSR, No murmurs, No gallops Lungs: Clear to P&A Abd: Soft, Normal bowel sounds, No organomegaly Ext:No significant edema Skin: No rashes, Integument intact Well healing right inguinal area CBC, BMP 02/01/19 09:18 02/01/19 09:18 Current Medications Generic Name Dose Route Start Last Admin Trade Name Freq PRN Reason Stop Dose Admin Acetaminophen 650 mg 01/30/19 17:24 02/01/19 03:44 Tylenol - PO 650 mg Q6H PRN Administration PAIN LEVEL 1-5 Docusate Sodium 100 mg 01/30/19 22:00 02/01/19 14:12 Colace - PO 100 mg TID [facility] Administration Enoxaparin Sodium 40 mg 01/28/19 21:00 02/01/19 09:24 Lovenox - SQ 40 mg DAILY [facility] Administration Ondansetron HCl 4 mg 01/30/19 17:25 02/01/19 09:14 Zofran Odt - SL 4 mg Q8H PRN Administration NAUSEA Oxycodone HCl 5 mg 01/30/19 12:20 02/01/19 03:44 Roxicodone - PO 5 mg Q6H PRN Administration PAIN LEVEL 4 - 6 Oxycodone HCl 10 mg 01/30/19 12:20 02/01/19 09:14 Roxicodone - PO 10 mg Q6H PRN Administration PAIN LEVEL 7 - 10 Pantoprazole Sodium 40 mg 01/31/19 10:00 02/01/19 09:17 Protonix - PO 40 mg DAILY [facility] Administration Polyethylene Glycol 17 gm 01/30/19 22:00 02/01/19 10:21 Miralax (For Daily Use) - PO 17 gm BID [facility] Administration Senna 2 tab 01/30/19 17:31 Senna - PO HS PRN CONSTIPATION 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 Problem List - Problems (1) Testicular mass Code(s): N50.9 - DISORDER OF MALE GENITAL ORGANS, UNSPECIFIED
--- NOTE | 2019-02-01 17:55 | PN ---
Progress Note, Physician History of Present Illness: Emergency [facility] application pending approval pt has no acute complaints - Current Medication List Current Medications: Active Medications Acetaminophen (Tylenol -) 650 mg PO Q6H PRN PRN Reason: PAIN LEVEL 1-5 Last Admin: 02/01/19 03:44 Dose: 650 mg Docusate Sodium (Colace -) 100 mg PO TID [facility] Last Admin: 02/01/19 14:12 Dose: 100 mg Enoxaparin Sodium (Lovenox -) 40 mg SQ DAILY [facility] Last Admin: 02/01/19 09:24 Dose: 40 mg Ondansetron HCl (Zofran Odt -) 4 mg SL Q8H PRN PRN Reason: NAUSEA Last Admin: 02/01/19 09:14 Dose: 4 mg Oxycodone HCl (Roxicodone -) 5 mg PO Q6H PRN PRN Reason: PAIN LEVEL 4 - 6 Last Admin: 02/01/19 16:10 Dose: 5 mg Oxycodone HCl (Roxicodone -) 10 mg PO Q6H PRN PRN Reason: PAIN LEVEL 7 - 10 Last Admin: 02/01/19 09:14 Dose: 10 mg Pantoprazole Sodium (Protonix -) 40 mg PO DAILY [facility] Last Admin: 02/01/19 09:17 Dose: 40 mg Polyethylene Glycol (Miralax (For Daily Use) -) 17 gm PO BID [facility] Last Admin: 02/01/19 10:21 Dose: 17 gm Senna (Senna -) 2 tab PO HS PRN PRN Reason: CONSTIPATION - Objective Vital Signs: Vital Signs Temperature 97.9 F 02/01/19 13:40 Pulse Rate 61 02/01/19 13:40 Respiratory Rate 20 02/01/19 13:40 Blood Pressure 111/61 02/01/19 13:40 O2 Sat by Pulse Oximetry (%) 99 02/01/19 11:00 Constitutional: Yes: Well Nourished, No Distress, Calm Eyes: Yes: Conjunctiva Clear, PERRL HENT: Yes: Atraumatic, Normocephalic Neck: Yes: Supple, Trachea Midline Cardiovascular: Yes: Regular Rate and Rhythm Respiratory: Yes: Regular, CTA Bilaterally Gastrointestinal: Yes: Normal Bowel Sounds, Soft ...Rectal Exam: Yes: Deferred Genitourinary: Yes: Other (right inguinal stitch clean and dry) Musculoskeletal: Yes: WNL Extremities: Yes: WNL Edema: No Peripheral Pulses WNL: No Peripheral Pulses: Left Radial: 2+, Right Radial: 2+ Integumentary: Yes: WNL Wound/Incision: Yes: Clean/Dry, Open to air Neurological: Yes: Alert, Oriented ...Motor Strength: WNL Psychiatric: Yes: Alert, Oriented Labs: CBC, BMP 02/01/19 09:18 02/01/19 09:18 INR, PTT INR 1.13 (0.83-1.09) H 01/27/19 18:22 Problem List - Problems (1) Testicular mass Assessment/Plan: S/p right orchiectomy -pt being followed by [facility] and urology -lovenox 40mg SC daily Code(s): N50.9 - DISORDER OF MALE GENITAL ORGANS, UNSPECIFIED (2) Prophylactic measure Assessment/Plan: Oxycodone PRN pain PPI for GI prophylaxis Bowel regimen: senna/colace PRN miralax Code(s): Z29.9 - ENCOUNTER FOR PROPHYLACTIC MEASURES, UNSPECIFIED Impression/Plan Impression/Plan: DISPO: Full code Visit type - Emergency Visit Emergency Visit: Yes ED Registration Date: 01/27/19 Care time: The patient presented to the Emergency Department on the above date and was hospitalized for further evaluation of their emergent condition. - New Patient This patient is new to me today: Yes Date on this admission: 02/01/19 - Critical Care Critical Care patient: No - Discharge Referral Referred to [facility] Med P.C.: No
[2019-02-02] MEDS: DOCUSATE SODIUM 100 MG CAPSULE (FP) PO SCH ×3 (05:12→22:16)
[2019-02-02] MEDS: oxyCODONE HCL 5 MG TABLET PO PRN ×3 (06:18→22:15)
[2019-02-02] MEDS: ACETAMINOPHEN 325 MG TABLET (FP) PO PRN ×2 (06:19→22:15)
[2019-02-02 07:26] LABS: HEMOGLOBIN 15.2 GM/dL (11.7-16.9); MCH 30.9 pg (25.7-33.7); MCHC 35.3 g/dl (32.0-35.9); MEAN CELL VOLUME 87.4 fl (80-96); MEAN PLT VOLUME 10.1 fl (7.5-11.1); PLATELET COUNT 185 K/MM3 (134-434); RBC 4.92 M/mm3 (4.00-5.60); RDW 13.1 % (11.9-15.9); WHITE BLOOD COUNT 8.3 K/mm3 (4.0-10.0)
[2019-02-02] MEDS: PANTOPRAZOLE 40 MG TABLET (FP) PO SCH (10:25)
[2019-02-02] MEDS: ENOXAPARIN NA (PORCINE) 40 MG/0.4 ML DISP.SYRIN SQ SCH (10:25)
[2019-02-02] MEDS: POLYETHYLENE GLYCOL 3350 119 GM BTL PO SCH ×2 (10:28→22:16)
--- NOTE | 2019-02-02 10:55 | PN ---
Physical Exam: SUBJECTIVE: Patient seen and examined. He complains of pain at surgical site, but it is controlled with oxycodone. OBJECTIVE: Vital Signs Period Temp Pulse Resp BP Sys/Stanton Pulse Ox Last 24 Hr 97.0 F-98.5 F 60-78 18-20 111-131/61-71 98-99 GENERAL: The patient is awake, alert, and fully oriented, in no acute distress. LUNGS: Breath sounds equal, clear to auscultation bilaterally, no wheezes, no crackles, no accessory muscle use. HEART: Regular rate and rhythm, S1, S2 without murmur, rub or gallop. ABDOMEN: Soft, nontender, nondistended, normoactive bowel sounds, no guarding, no rebound, no hepatosplenomegaly, no masses. EXTREMITIES: 2+ pulses, warm, well-perfused, no edema. Laboratory Results - last 24 hr 02/01/19 02/01/19 02/01/19 09:18 11:34 16:56 WBC RBC Hgb Hct MCV MCH MCHC RDW Plt Count MPV Sodium 137 Potassium 4.2 Chloride 103 Carbon Dioxide 28 Anion Gap 6 L BUN 14 Creatinine 1.1 Creat Clearance w eGFR > 60 POC Glucometer 111 106 Random Glucose 80 Calcium 8.7 Total Bilirubin 0.5 AST 17 ALT 45 Alkaline Phosphatase 111 Total Protein 7.4 Albumin 4.0 02/02/19 02/02/19 06:17 06:30 WBC 8.3 RBC 4.92 Hgb 15.2 Hct 43.0 MCV 87.4 MCH 30.9 MCHC 35.3 RDW 13.1 Plt Count 185 MPV 10.1 Sodium Potassium Chloride Carbon Dioxide Anion Gap BUN Creatinine Creat Clearance w eGFR POC Glucometer 84 Random Glucose Calcium Total Bilirubin AST ALT Alkaline Phosphatase Total Protein Albumin Active Medications Generic Name Dose Route Start Last Admin Trade Name Freq PRN Reason Stop Dose Admin Acetaminophen 650 mg 01/30/19 17:24 02/02/19 06:19 Tylenol - PO 650 mg Q6H PRN Administration PAIN LEVEL 1-5 Docusate Sodium 100 mg 01/30/19 22:00 02/02/19 05:12 Colace - PO Not Given TID [facility] Enoxaparin Sodium 40 mg 01/28/19 21:00 02/02/19 10:25 Lovenox - SQ 40 mg DAILY [facility] Administration Ondansetron HCl 4 mg 01/30/19 17:25 02/01/19 09:14 Zofran Odt - SL 4 mg Q8H PRN Administration NAUSEA Oxycodone HCl 5 mg 01/30/19 12:20 02/01/19 16:10 Roxicodone - PO 5 mg Q6H PRN Administration PAIN LEVEL 4 - 6 Oxycodone HCl 10 mg 01/30/19 12:20 02/02/19 06:18 Roxicodone - PO 10 mg Q6H PRN Administration PAIN LEVEL 7 - 10 Pantoprazole Sodium 40 mg 01/31/19 10:00 02/02/19 10:25 Protonix - PO 40 mg DAILY [facility] Administration Polyethylene Glycol 17 gm 01/30/19 22:00 02/02/19 10:28 Miralax (For Daily Use) - PO 17 gm BID [facility] Administration Senna 2 tab 01/30/19 17:31 Senna - PO HS PRN CONSTIPATION ASSESSMENT/PLAN: 1. 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 - New Patient This patient is new to me today: Yes Date on this admission: 02/02/19 - Critical Care Critical Care patient: No - Discharge Referral Referred to [facility] Med P.C.: No
--- NOTE | 2019-02-02 16:21 | PN ---
Progress Note (short form) - Note Progress Note: Patient seen and examined Little change clinically Still with hemoptysis . Still no path available 1/2 lfe of Beta HCG is 1 1/2-3 days and AFP is 5-7 days. Will recheck markers post orchiectomy. Problem List - Problems (1) Testicular mass Code(s): N50.9 - DISORDER OF MALE GENITAL ORGANS, UNSPECIFIED
[2019-02-03] MEDS: ACETAMINOPHEN 325 MG TABLET (FP) PO PRN ×3 (05:24→21:31)
[2019-02-03] MEDS: DOCUSATE SODIUM 100 MG CAPSULE (FP) PO SCH ×3 (05:24→21:29)
[2019-02-03] MEDS: oxyCODONE HCL 5 MG TABLET PO PRN ×3 (05:25→21:29)
[2019-02-03 08:00] LABS: BASO % 0.5 % (0-2.0); EOS % 2.2 % (0-4.5); HEMATOCRIT 42.5 % (35.4-49); LYMPH % 24.7 % (8-40); MCH 30.2 pg (25.7-33.7); MCHC 35.2 g/dl (32.0-35.9); MEAN CELL VOLUME 85.9 fl (80-96); MONO % 8.4 % (3.8-10.2); NEUT % 64.2 % (42.8-82.8); PLATELET COUNT 187 K/MM3 (134-434); RBC 4.94 M/mm3 (4.00-5.60); RDW 13.3 % (11.9-15.9); WHITE BLOOD COUNT 8.3 K/mm3 (4.0-10.0)
[2019-02-03 08:23] LABS: ALBUMIN 3.8 g/dl (3.4-5.0); ALK PHOS 102 U/L (45-117); ANION GAP 5 MMOL/L (8-16); BILIRUBIN,TOTAL 0.6 mg/dL (0.2-1); BLOOD UREA NITROGEN 17 mg/dL (7-18); CALCIUM 8.9 mg/dL (8.5-10.1); CHLORIDE 104 mmol/L (98-107); CO2 27 mmol/L (21-32); CREATININE 0.9 mg/dL (0.55-1.3); GLUCOSE,RANDOM 85 mg/dL (74-106); LDH 206 U/L (87-246); POTASSIUM 4.2 mmol/L (3.5-5.1); SGOT/AST 21 U/L (15-37); SGPT/ALT 60 U/L (13-61); SODIUM 135 mmol/L (136-145); TOT PROT 7.1 g/dl (6.4-8.2)
[2019-02-03] MEDS: POLYETHYLENE GLYCOL 3350 119 GM BTL PO SCH ×2 (10:01→21:29)
[2019-02-03] MEDS: ENOXAPARIN NA (PORCINE) 40 MG/0.4 ML DISP.SYRIN SQ SCH (10:02)
[2019-02-03] MEDS: PANTOPRAZOLE 40 MG TABLET (FP) PO SCH (10:02)
[2019-02-03 11:12] LABS: ANISOCYTOSIS 0; HELMET CELLS 0; HOWELL-JOLLY BODIES 0; MACROCYTOSIS 0; OVALOCYTE 0; PLATELET ESTIMATE NORMAL; ROULEAU 0; SICKELED CELLS 0; TARGET CELLS 0; TEAR DROP CELLS 0; TOXIC GRANULATION 0
--- NOTE | 2019-02-03 15:04 | PATH ---
Surgical Pathology Report Patient Name: MACHELLE KEMP Med. Rec. #: [id number] /Age/Gender: 1995 (Age: 23) / M Account: [id number] Location: [facility] MED/SURG Taken: 01/27/2019 Received: 01/28/2019 Reported: 02/03/2019 Physicians: eLander Bueno M.D. Norman Rosen, M.D. 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 THE TUMOR IS LIMITED TO THE TESTIS. LYMPHOVASCULAR INVASION IS IDENTIFIED. SPERMATIC CORD MARGIN IS NEGATIVE FOR TUMOR. PATHOLOGIC STAGE (pTNM): pT2 pNX. ALSO SEE SURGICAL PATHOLOGY CANCER CASE SUMMARY BELOW. Comment: Immunohistochemical stained slides demonstrate seminoma component to be positive for Oct3/4, PLAP, D2-40, while negative for CAM5.2. Embryonal carcinoma component shows positivity for Cam5.2 and PLAP, while negative for CD117 and is Glypican3. Yolk sac tumour component shows immunoactivity for Cam5.2, Glypican 3, and AFP, while negative for Oct 3/4. Choriocarcinoma component is positive for HCG, CHEO (focal), and Cam5.2, negative for Oct 3/4. Immunohistochemistry stains HCG, PLAP, AFP, D2-40, CHEO, Cam5.2, CD117, Glypican3, and Oct3/4 performed at [place], [place] ([id number]) interpreted at [facility]. Positive and negative controls (internal if applicable) show appropriate results. This case was discussed with Dr. Prince on February 03, 2019. Comments Surgical Pathology Cancer Case Summary TESTIS: Radical Orchiectomy Specimen Laterality _X_ Right Tumor Focality _X_ Unifocal Tumor Size Greatest dimension of main tumor mass (centimeters): 6.3 cm + Additional dimensions: 5.1 x 4.5cm Histologic Type Non-seminomatous types _X_ Mixed germ cell tumor _X_ Seminoma (specify percentage): 5% _X_ Embryonal carcinoma (specify percentage): 25% _X_ Yolk sac tumor, postpubertal type (specify percentage): 10% _X_ Choriocarcinoma (specify percentage): 60% Tumor Extension _X_ Tumor limited to testis Margins Spermatic Cord Margin _X_ Uninvolved by tumor Lymphovascular Invasion _X_ Present Regional Lymph Nodes _X_ No lymph nodes submitted or found Pathologic Stage Classification (pTNM, AJCC 8th Edition) Primary Tumor (pT) _X_ pT2: Tumor limited to testis (including rete testis invasion) with lymphovascular invasion OR Tumor invading hilar soft tissue or epididymis or penetrating visceral mesothelial layer covering the external surface of tunica albuginea with or without lymphovascular invasion Regional Lymph Nodes (pN) _X_ pNX: Regional lymph node cannot be assessed + Pre-Orchiectomy Serum Tumor Markers + _X_ Alpha-fetoprotein (AFP) elevation + _X_ Beta subunit of human chorionic gonadotropin (b-hCG) elevation + _X_ Lactate dehydrogenase (LDH) elevation + Post-Orchiectomy Serum Tumor Markers + _X_ Unknown + Serum Tumor Markers (S) LDH HCG (mIU/mL) AFP (ng/mL) + _X_ S2: 1.5-10 X N or 5,000-50,000 or 1,000-10,000 # N indicates the upper limit of normal for the LDH assay. + Additional Pathologic Findings + _X_ Germ cell neoplasia in situ (GCNIS) Electronically Signed Cristin Haile M.D. Gross Description Received in formalin labeled "right testicle and spermatic cord," is a 107 g orchiectomy specimen including a 7.4 x 5.0 x 4.5 cm testis, a 3.0 x 2.3 x 2.2 cm epididymis and a 6.5 cm in length portion of spermatic cord. There is a 6.3 x 5.1 x 4.5 cm mass abutting the tunica albuginea. There is no definite invasion through the tunica. There is no definite invasion of the epididymis. The mass is heterogeneous michael-red with hemorrhagic foci. There is minimal remaining normal testicular parenchyma. The spermatic cord is grossly unremarkable. [employer] sections are submitted in 13 cassettes as follows: 1-spermatic cord margin of resection; 2-7-one full face section of mass; 8-mass with normal testicular parenchyma; 9-mass with tunica albuginea; 10-11-mass with epididymis; 12-mass with adjacent tissue; 13-additional cross section of spermatic cord. 01/28/2019 [facility]01/28/2019
--- NOTE | 2019-02-03 17:20 | PN ---
Progress Note, Physician History of Present Illness: 24HR EVENTS -NO ACUTE CHANGES - Current Medication List Current Medications: Active Medications Acetaminophen (Tylenol -) 650 mg PO Q6H PRN PRN Reason: PAIN LEVEL 1-5 Last Admin: 02/03/19 14:49 Dose: 650 mg Docusate Sodium (Colace -) 100 mg PO TID [facility] Last Admin: 02/03/19 14:40 Dose: 100 mg Enoxaparin Sodium (Lovenox -) 40 mg SQ DAILY [facility] Last Admin: 02/03/19 10:02 Dose: 40 mg Ondansetron HCl (Zofran Odt -) 4 mg SL Q8H PRN PRN Reason: NAUSEA Last Admin: 02/01/19 09:14 Dose: 4 mg Oxycodone HCl (Roxicodone -) 5 mg PO Q6H PRN PRN Reason: PAIN LEVEL 4 - 6 Last Admin: 02/03/19 14:47 Dose: 5 mg Oxycodone HCl (Roxicodone -) 10 mg PO Q6H PRN PRN Reason: PAIN LEVEL 7 - 10 Last Admin: 02/03/19 05:25 Dose: 10 mg Pantoprazole Sodium (Protonix -) 40 mg PO DAILY [facility] Last Admin: 02/03/19 10:02 Dose: 40 mg Polyethylene Glycol (Miralax (For Daily Use) -) 17 gm PO BID [facility] Last Admin: 02/03/19 10:01 Dose: 17 gm Senna (Senna -) 2 tab PO HS PRN PRN Reason: CONSTIPATION - Objective Vital Signs: Vital Signs Temperature 98.1 F 02/03/19 14:22 Pulse Rate 68 02/03/19 14:22 Respiratory Rate 20 02/03/19 14:22 Blood Pressure 131/72 02/03/19 14:22 O2 Sat by Pulse Oximetry (%) 97 02/03/19 03:00 Constitutional: Yes: Well Nourished, No Distress, Calm Eyes: Yes: Conjunctiva Clear HENT: Yes: Atraumatic, Normocephalic Neck: Yes: Supple, Trachea Midline Cardiovascular: Yes: Regular Rate and Rhythm Respiratory: Yes: Regular, CTA Bilaterally Gastrointestinal: Yes: Normal Bowel Sounds, Soft ...Rectal Exam: Yes: Deferred Musculoskeletal: Yes: WNL Extremities: Yes: WNL Edema: No Peripheral Pulses WNL: Yes Peripheral Pulses: Left Radial: 2+, Right Radial: 2+, Left Doralis Pedis: 2+, Right Dorsalis Pedis: 2+ Integumentary: Yes: WNL Wound/Incision: Yes: Well Approximated (right groin surgical incision, no bleeding) Neurological: Yes: Alert, Oriented ...Motor Strength: WNL Psychiatric: Yes: Alert, Oriented Labs: CBC, BMP 02/03/19 06:15 02/03/19 06:15 INR, PTT INR 1.13 (0.83-1.09) H 01/27/19 18:22 Problem List - Problems (1) Testicular mass Assessment/Plan: S/p right orchiectomy -pt being followed by heme-onc and urology -lovenox 40mg SC daily -pain control with oxycodone Code(s): N50.9 - DISORDER OF MALE GENITAL ORGANS, UNSPECIFIED (2) Prophylactic measure Assessment/Plan: PPI for GI prophylaxis Bowel regimen: senna/colace PRN miralax patho report pending. pt awaiting insurance approval Code(s): Z29.9 - ENCOUNTER FOR PROPHYLACTIC MEASURES, UNSPECIFIED Impression/Plan Impression/Plan: DISPO: Full code Visit type - Emergency Visit Emergency Visit: Yes ED Registration Date: 01/27/19 Care time: The patient presented to the Emergency Department on the above date and was hospitalized for further evaluation of their emergent condition. - New Patient This patient is new to me today: No - Critical Care Critical Care patient: No - Discharge Referral Referred to [facility] Med P.C.: No
--- NOTE | 2019-02-03 23:31 | PN ---
Progress Note (short form) - Note Progress Note: patient seen and exained feels ok afvss Cor: RSR, No murmurs, No gallops Lungs: Clear to P&A Abd: Soft, Normal bowel sounds, No organomegaly Ext:No significant edema labs/meds reviewed a/p 23 y/o patient s/p rt. radical orchiectomy, path c/w mixed germ cell tumor ( choriocarcinoma/ embryonal carcinoma/ yolk sac tumor/ seminoma) AFP-13/hCG-27,000/LDH--normal Will need Ct guided lung nodule bx BAsec d on imaging --lung mets, multiple, 2cm, with air space opacities and infiltration. No abdominal mets Intermediate risk mixed germ cell tumor, advance with lung only mets will need BEP x 4cycles will coordinate care
[2019-02-04] MEDS: oxyCODONE HCL 5 MG TABLET PO PRN (06:05)
[2019-02-04] MEDS: DOCUSATE SODIUM 100 MG CAPSULE (FP) PO SCH ×2 (06:05→13:36)
[2019-02-04] MEDS: PANTOPRAZOLE 40 MG TABLET (FP) PO SCH (09:16)
[2019-02-04] MEDS: ENOXAPARIN NA (PORCINE) 40 MG/0.4 ML DISP.SYRIN SQ SCH (09:16)
[2019-02-04] MEDS: POLYETHYLENE GLYCOL 3350 119 GM BTL PO SCH (09:16)
--- NOTE | 2019-02-04 10:46 | DS ---
Physical Exam: SUBJECTIVE: Patient seen and examined. continues to have hemoptysis, same amount since arrival. denies CP, SOB, fever, chills, N/V/C/D OBJECTIVE: Vital Signs Period Temp Pulse Resp BP Sys/Stanton Pulse Ox Last 24 Hr 97.5 F-98.6 F 56-68 18-20 118-137/61-75 98-98 PHYSICAL EXAM GENERAL: The patient is awake, alert, and fully oriented, in no acute distress. HEAD: Normal with no signs of trauma. EYES: PERRL, extraocular movements intact, sclera anicteric, conjunctiva clear. ENT: Ears normal, nares patent, oropharynx clear without exudates, moist mucous membranes. NECK: Trachea midline, full range of motion, supple. LUNGS: Breath sounds equal, clear to auscultation bilaterally, no wheezes, no crackles, no accessory muscle use. HEART: Regular rate and rhythm, S1, S2 without murmur, rub or gallop. ABDOMEN: Soft, nontender, nondistended, normoactive bowel sounds, no guarding, no rebound, no hepatosplenomegaly, no masses. EXTREMITIES: 2+ pulses, warm, well-perfused, no edema. NEUROLOGICAL: Cranial nerves II through XII grossly intact. Normal speech, gait not observed. PSYCH: Normal mood, normal affect. SKIN: Warm, dry, normal turgor, no rashes or lesions noted. LABS Laboratory Results - last 24 hr 02/03/19 02/03/19 06:15 06:15 Neutrophils % (Manual) 62.0 Band Neutrophils % 1.0 Lymphocytes % (Manual) 20.0 Monocytes % (Manual) 9 Eosinophils % (Manual) 2.0 Basophils % (Manual) 0.0 Myelocytes % (Man) 0 Promyelocytes % (Man) 0 Blast Cells % (Manual) 0 Metamyelocytes 1 Hypochromia 0 Toxic Granulation 0 Dohle Bodies 0 Platelet Estimate Normal Polychromasia 0 Poikilocytosis 0 Basophilic Stippling 0 Anisocytosis 0 Microcytosis 0 Macrocytosis 0 Spherocytes 0 Sickle Cells 0 Target Cells 0 Tear Drop Cells 0 Ovalocytes 0 Stomatocytes 0 Helmet Cells 0 [place] Bodies 0 [place] Rings 0 [place] Cells 0 Acanthocytes (Spur) 0 Rouleaux 0 Fragmented RBCs 0 Schistocytes 0 Tumor Marker AFP 13.2 H Tumor Marker HCG 52203.0 H HOSPITAL COURSE: Date of Admission:01/27/19 Date of Discharge: 02/04/19 ADmitting Diagnosis: 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 Chest CT: multiple B/L pulmonary nodules with largest 2cm consistent with mets Pre hospital course 22-year-old male complaining of right testicular swelling and pain for the last 4 months along with 5 found weight loss. Patient was seen at [facility] emergency Department x2 in december. Right testicular workup was performed in outpatient clinic. Scrotal US here positive for two right testicular masses. UA was normal. Subsequent hospital course Imaging done showing testicular mass. pt underwent radical orichectomy. pathology was found to have mixed germ cell tumor ( choriocarcinoma/ embryonal carcinoma/ yolk sac tumor/ seminoma). Tumor markers done with AFP trending down. which will need to be monitored. since patient lacked insurance treatment could not be initiated here but information on an oncologist was obtained that would start treatment. contact information given to patient and stressed need to see them today. continued to have hemoptysis throughout hospital course but liekly due to pulm nodules and hgb was stable. will need to f/u with oncology. pt verbalized understanding of plan AFP-13/hCG-27,000/LDH--normal Minutes to complete discharge: 40 Discharge Summary Reason For Visit: TESTICULAR MASS Current Active Problems Prophylactic measure (Acute) Testicular mass (Acute) Testicular pain, right (Acute) Condition: Guarded - Instructions Diet, Activity, Other Instructions: You were admitted to the hospital because of mass found in your testicles. This was removed and was seen to be cancerous it is VERY IMPORTANT that you call Dr Cherri Almanza TODAY and make an appointment to start treatment [phone]. PLease see him as soon as possible to start treatment. Also discuss with them the lung nodules that were seen on imaging here. 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 tumor is limited to the testis and spermatic cord was negative for tumor Disposition: HOME - Home Medications Comprehensive Discharge Medication List: Ambulatory Orders NK [No Known Home Medication] 01/27/19 This patient is new to me today: Yes Date on this admission: 02/04/19 Emergency Visit: Yes ED Registration Date: 01/27/19 Care time: The patient presented to the Emergency Department on the above date and was hospitalized for further evaluation of their emergent condition. Critical Care patient: No - Discharge Referral Referred to [facility] Med P.C.: Yes Physician Referral: Alejandro Santos MD ([facility])
[2019-02-04 14:15] VITALS: BP 131/85; PULSE 70; TEMP 97.7
== END 2019-02-04 17:13 | disposition home or self-care (01) | DRG 483 ==
LOC: JER 12:53 → JERFT 12:53 → EDBD 16:00 → JERBED 16:00 → OBSVTOIN 16:00 → INTOOBSV 16:00 → OBSVTOIN 18:59 → J7W 22:06
PROVIDERS: ADMIT Internal Medicine; ATTEND Internal Medicine
PROC: 0VB90ZZ Excision of Right Testis, Open Approach (ICD-10-PCS; principal; 2019-01-27 19:00)
DX: C62.91 Malignant neoplasm of right testis, unspecified whether descended or undescended (principal); R04.2 Hemoptysis; R91.8 Other nonspecific abnormal finding of lung field; R63.4 Abnormal weight loss; Z68.28 Body mass index [BMI] 28.0-28.9, adult
CPT/HCPCS: 36415; 71260-TC; 74177-TC; 76870-TC; 80048; 80053; 81003; 82105; 82962; 82977; 83615; 84702; 85025; 85027; 85610; 85730; 86850; 86900; 86901; 87086; 88309-TC; 94760; 97116-GP; 97161-GP; 99283-25; G0378; J7030; Q0162